=== PATIENT | female | born 1945 | race Caucasian/White ===

== ENCOUNTER → 2019-05-23 | Outpatient (CLI) | payer OTHER ==
[~2019-05-23] MED LIST: ASPI81EC PO; ATOR10; ATOR40TA PO; CALCAVITD PO; CIME400 PO; FLUO10 PO; HYDPAM50 PO; IBUP600 PO; LETR2.5 PO; LORA10ER PO; METO100ER; METO100ER PO; MULVITMINF PO; Norco 5-325 Ta1 EACH PO; PRED20 PO; RALO60 PO; SULTRIDS PO; Valium5 MG PO; WARF5
== END | disposition home or self-care (01) ==
LOC: LAB SHORT 11:53 → PLD 11:53
DX: D48.5 Neoplasm of uncertain behavior of skin (principal); L82.1 Other seborrheic keratosis
CPT/HCPCS: 88305

== ENCOUNTER 2021-03-05 07:12 | Day surgery (SDC) | payer OTHER ==
[~2021-03-05] VITALS: Ht 167.6 cm; Wt 111.8 kg
[~2021-03-05 07:12] MED LIST changes: +ACET500 PO; +FISH OIL 1,2001 EAC7 PO
--- NOTE | 2021-03-05 07:49 | NUR ---
03/05/21 0787 Kwabena Wiley TETRACAINE APPLIED TO RIGHT EYE 0740 AND PLEDGET APPLIED AT 0747
--- NOTE | 2021-03-05 09:06 | NUR ---
03/05/[address] MEET ORDERED HER TO TAKE TYLENOL PRIOR TO DC D/T PAIN
== END 2021-03-05 09:20 | disposition home or self-care (01) ==
LOC: ORSCSDS 07:12
PROVIDERS: Ophthalmology
PROC: 08RJ3JZ Replacement of Right Lens with Synthetic Substitute, Percutaneous Approach (ICD-10-PCS; principal; 2021-03-05 08:30)
DX: H25.11 Age-related nuclear cataract, right eye (principal); I10 Essential (primary) hypertension; E78.00 Pure hypercholesterolemia, unspecified; E66.01 Morbid (severe) obesity due to excess calories; Z68.39 Body mass index [BMI] 39.0-39.9, adult; Z79.899 Other long term (current) drug therapy; Z79.82 Long term (current) use of aspirin
CPT/HCPCS: A9270; J2001; J2250; J3010; J3301; V2632

== ENCOUNTER 2021-04-02 07:17 | Day surgery (SDC) | payer OTHER ==
[~2021-04-02] VITALS: Ht 167.6 cm; Wt 112.9 kg
--- NOTE | 2021-04-02 07:44 | NUR ---
04/02/21 0744 Rose Marie Redding TETRACAINE 0740 PLEDGET 07[address] IN LEFT EYE BY [facility]
== END 2021-04-02 09:11 | disposition home or self-care (01) ==
LOC: ORSCSDS 07:17
PROVIDERS: Ophthalmology
PROC: 08RK3JZ Replacement of Left Lens with Synthetic Substitute, Percutaneous Approach (ICD-10-PCS; principal; 2021-04-02 08:30)
DX: H25.12 Age-related nuclear cataract, left eye (principal); I10 Essential (primary) hypertension; E66.01 Morbid (severe) obesity due to excess calories; Z68.41 Body mass index [BMI] 40.0-44.9, adult; F32.9 Major depressive disorder, single episode, unspecified; Z79.82 Long term (current) use of aspirin; Z79.899 Other long term (current) drug therapy
CPT/HCPCS: J2001; J2250; J3010; J3301; J7040; V2632

== ENCOUNTER 2022-07-10 20:37 | Inpatient (IN) | payer OTHER ==
[2022-07-12] MEDS ORDERED: VISBIOME 112.51 EACH PO (13:03)
[2022-07-12] MEDS ORDERED: CEFD300 PO (13:03)
[2022-07-12] MEDS ORDERED: ONDA4 PO (13:04)
== END 2022-07-12 13:42 | disposition home or self-care (01) | DRG 872 ==
DX: A41.9 Sepsis, unspecified organism (principal); N12 Tubulo-interstitial nephritis, not specified as acute or chronic; I50.22 Chronic systolic (congestive) heart failure; I11.0 Hypertensive heart disease with heart failure; E78.00 Pure hypercholesterolemia, unspecified; F32.A Depression, unspecified; Z87.891 Personal history of nicotine dependence; Z90.12 Acquired absence of left breast and nipple; Z88.1 Allergy status to other antibiotic agents; Z88.2 Allergy status to sulfonamides; Z79.82 Long term (current) use of aspirin; Z79.899 Other long term (current) drug therapy

== ENCOUNTER 2022-12-29 15:49 | Emergency (ER) | payer OTHER ==
[~2022-12-29] VITALS: Ht 167.6 cm; Wt 106.6 kg
[~2022-12-29 15:49] MED LIST changes: +CEFD300 PO; +ONDA4 PO; +VISBIOME 112.51 EACH PO
[2022-12-29] MEDS ORDERED: OXYACE7.5T PO (18:39)
[2022-12-29 19:33] VITALS: BP 149/81
== END 2022-12-29 19:37 | disposition home or self-care (01) ==
LOC: ER 15:49
DX: S43.014A Anterior dislocation of right humerus, initial encounter (principal); W01.0XXA Fall on same level from slipping, tripping and stumbling without subsequent striking against object, initial encounter; I10 Essential (primary) hypertension; Z87.891 Personal history of nicotine dependence; Z88.1 Allergy status to other antibiotic agents; Z88.2 Allergy status to sulfonamides; Z91.048 Other nonmedicinal substance allergy status; Z79.899 Other long term (current) drug therapy
CPT/HCPCS: 23650; 73030; 99283-25; A9270; J2250